=== PATIENT | female | born 1990 | race Two or more races ===

== ENCOUNTER 2017-04-11 22:44 | Emergency (ER) | payer OTHER ==
[~2017-04-11] VITALS: Ht 157.5 cm; Wt 61.2 kg
[2017-04-12 00:19] LABS: BILIRUBIN,URINE NEGATIVE (NEG); GLUCOSE,URINE NEGATIVE (NEG); NITRITE,URINE NEGATIVE (NEG); PROTEIN,URINE NEGATIVE (NEG-TRACE); UROBILINOGEN,URINE 0.2 mg/dL (0.2 mg/dL)
[2017-04-12 00:36] LABS: BACTERIA,URINE FEW /HPF (0-FEW); RBC,URINE OCC /HPF (0-2); SQUAMOUS EPITHELIAL CELL,UR MOD /LPF; WBC,URINE OCC /HPF (0-4)
[2017-04-12 01:29] LABS: BASO # 0.1 x10^3/uL (0.0-0.2); BASO % 1 % (0-3); EOS % 3 % (0-3); HEMATOCRIT 42.7 % (36.0-47.0); HEMOGLOBIN 14.3 g/dL (12.0-15.5); LYMPH # 2.4 x10^3/uL (1.0-4.8); LYMPH % 19 % (24-48); MEAN CORPUSCULAR HEMOGLOBIN 32 pg (25-35); MEAN CORPUSCULAR HGB CONC 34 g/dL (31-37); MEAN CORPUSCULAR VOLUME 96 fL (79-100); MONO % 5 % (0-9); NEUT % 72 % (31-73); PLATELET COUNT 407 x10^3/uL (140-400); RED BLOOD COUNT 4.44 x10^6/uL (3.50-5.40); WHITE BLOOD COUNT 12.7 x10^3/uL (4.0-11.0)
[2017-04-12] MEDS ORDERED: KETOROLAC TROMETHAMINE 30 MG/ML INJ. IV ONE (01:30)
[2017-04-12] MEDS ORDERED: IV NORMAL SALINE 1000ML BAG 1,000 ML IV SCH (01:30)
[2017-04-12] MEDS ORDERED: ONDANSETRON PF 4 MG/2 ML VIAL. IV ONE (01:30)
[2017-04-12 01:56] LABS: CALCIUM 9.5 mg/dL (8.5-10.1); CREATININE 0.7 mg/dL (0.6-1.0); GFR 98.9; POTASSIUM 3.8 mmol/L (3.5-5.1)
[2017-04-12 02:02] LABS: ALBUMIN 4.5 g/dL (3.4-5.0); ALBUMIN/GLOBULIN RATIO 1.1 (1.0-1.7); TOTAL BILIRUBIN 0.2 mg/dL (0.2-1.0); TOTAL PROTEIN 8.6 g/dL (6.4-8.2)
--- NOTE | 2017-04-12 02:24 | RAD ---
EXAM: Abdomen and pelvis CT without intravenous contrast. HISTORY: 27-year-old female with bilateral flank pain, evaluate for stones. TECHNIQUE: Computed tomographic images of the abdomen and pelvis were obtained without contrast. Multiplanar reformatting was performed. PQRS compliance statement: One or more of the following individualized dose reduction techniques were utilized for this examination: 1. Automated exposure control 2. Adjustment of the mA and/or kV according to patient size 3. Use of iterative reconstruction technique COMPARISON: None. FINDINGS: The lung bases demonstrate no acute finding. Detailed evaluation of the intra-abdominal and pelvic organs and vascular structures is limited secondary to lack of IV contrast. Within these limitations, the liver, spleen, gallbladder, pancreas, adrenal glands and bilateral kidneys demonstrate no focal abnormality. No nephrolithiasis or hydronephrosis is present. The GI tract demonstrates no dilated bowel loops to suggest obstruction. Formed fecal material is present throughout the colon, suggesting some degree of constipation. The appendix is visualized in the right lower quadrant, measuring up to 6 mm in diameter without adjacent soft tissue stranding seen.. The urinary bladder is grossly unremarkable. Uterus and bilateral adnexa demonstrate no definite abnormality. A cyst is suggested within the right ovary, not uncommon in premenopausal patients. No intra-abdominal or pelvic free fluid, free air or significant lymphadenopathy is seen. Aorta is normal in caliber. Overlying soft tissues and visualized osseous structures demonstrate no acute or suspicious finding. IMPRESSION: No acute intra-abdominal or pelvic process on this noncontrast study. Specifically, no nephrolithiasis or hydronephrosis seen. Electronically signed by: Bina Ceballos MD (04/12/2017 2:21 AM) [facility]
[2017-04-12 03:00] VITALS: BP 128/66
[2017-04-12] MEDS ORDERED: CEPH-264 PO (03:11)
[2017-04-12] MEDS ORDERED: PHEN-318 PO (03:11)
[2017-04-12] MEDS ORDERED: PHENAZOPYRIDINE 200 MG TABLET. PO ONE (03:15)
[2017-04-12] MEDS ORDERED: CEPHALEXIN 250 MG CAPSULE. PO ONE (03:15)
--- NOTE | 2017-04-12 05:39 | ED.ADGEN ---
Past Medical History Past Medical History: No Pertinent History Past Surgical History: Other Additional Past Surgical Histo: RIGHT ARM CYST Alcohol Use: Occasionally Drug Use: None Adult General Chief Complaint Chief Complaint: FLANK PAIN HPI HPI Patient is a 27 year old man, who presents with a two-week history of flank pain, with pain with urination that occurred yesterday. Patient denies any nausea or vomiting, any weakness, numbness or tingling, any chest pain or shortness breath, states that [place] her primary care provider. She states she is concerned that she has "a kidney infection", based on the symptoms she is experienced previously. She states she has been drinking lots of water and cranberry juice without improvement. Patient states that she does have aching pain located in her back, worse on the right side, no history of kidney stones, no injury, denies any hematuria, any discharge or drainage from the vagina, any concerns for STI exposures. Review of Systems Review of Systems Constitutional: Denies fever or chills. [] Eyes: Denies change in visual acuity. [] HENT: Denies nasal congestion or sore throat. [] Respiratory: Denies cough or shortness of breath. [] Cardiovascular: Denies chest pain or edema. [] GI: Denies abdominal pain, nausea, vomiting, bloody stools or diarrhea. [] : Mild dysuria. Musculoskeletal: Denies back pain or joint pain. [Flank pain, left sided greater than right area] Integument: Denies rash. [] Neurologic: Denies headache, focal weakness or sensory changes. [] Endocrine: Denies polyuria or polydipsia. [] Lymphatic: Denies swollen glands. [] Psychiatric: Denies depression or anxiety. [] Current Medications Current Medications Current Medications Medications (Trade) Dose Ordered Sig/Sahra Start Time Stop Time Status Last Admin Dose Admin Cephalexin HCl (Keflex) 500 mg 1X ONCE 04/12/17 03:15 04/12/17 03:16 DC 04/12/17 03:09 500 MG Ketorolac Tromethamine (Toradol) 10 mg 1X ONCE 04/12/17 01:30 04/12/17 01:31 DC 04/12/17 01:34 10 MG Ondansetron HCl (Zofran) 4 mg 1X ONCE 04/12/17 01:30 04/12/17 01:31 DC 04/12/17 01:34 4 MG Phenazopyridine HCl (Pyridium) 200 mg 1X ONCE 04/12/17 03:15 04/12/17 03:16 DC 04/12/17 03:09 200 MG Sodium Chloride 1,000 ml @ 1,000 mls/hr Q1H 04/12/17 01:30 04/12/17 02:29 DC 04/12/17 01:26 1,000 MLS/HR Allergies Allergies Allergies Coded Allergies Type Severity Reaction Last Updated Verified No Known Drug Allergies 04/12/17 No Physical Exam Physical Exam Constitutional: Well developed, well nourished, no acute distress, non-toxic appearance. [] HENT: Normocephalic, atraumatic, bilateral external ears normal, oropharynx moist, no oral exudates, nose normal. [] Eyes: PERRLA, EOMI, conjunctiva normal, no discharge. [] Neck: Normal range of motion, no tenderness, supple, no stridor. [] Cardiovascular:Heart rate regular rhythm, no murmur, S1, S2, rubs or gallops. [] Lungs & Thorax: Bilateral breath sounds clear to auscultation, no wheezing, rhonchi, rales. No chest or crepitus or tenderness. [] Abdomen: Bowel sounds normal, soft, no tenderness, no rebound, rigidity, no guarding, no masses, no pulsatile masses. [] Skin: Warm, dry, no erythema, no rash. [] Back: No tenderness, mild CVA tenderness, left-sided greater than right. [] Extremities: No tenderness, no cyanosis, no clubbing, ROM intact, no edema. Negative Homans sign. [] Neurologic: Alert and oriented X 3, normal motor function, normal sensory function, no focal deficits noted. [] Psychologic: Affect normal, judgement normal, mood normal. [] Current Patient Data Vital Signs Vital Signs Date Time Temp Pulse Resp B/P (MAP) Pulse Ox O2 Delivery O2 Flow Rate FiO2 04/12/17 03:00 88 19 128/66 (86) 99 Room Air 04/12/17 00:32 98.5 98.5 Lab Values Laboratory Tests Test 04/11/17 23:18 04/12/17 00:05 04/12/17 00:27 POC Urine HCG, Qualitative Hcg negative (Negative) Urine Collection Type Unknown Urine Color Yellow Urine Clarity Clear Urine pH 6.0 Urine Specific [place] 1.015 Urine Protein Negative mg/dL (NEG-TRACE) Urine Glucose (UA) Negative mg/dL (NEG) Urine Ketones (Stick) Negative mg/dL (NEG) Urine Blood Negative (NEG) Urine Nitrite Negative (NEG) Urine Bilirubin Negative (NEG) Urine Urobilinogen Dipstick 0.2 mg/dL (0.2 mg/dL) Urine Leukocyte Esterase Trace (NEG) Urine RBC Occ /HPF (0-2) Urine WBC Occ /HPF (0-4) Urine Squamous Epithelial Cells Mod /LPF Urine Bacteria Few /HPF (0-FEW) Urine Mucus Slight /LPF White Blood Count 12.7 x10^3/uL (4.0-11.0) H Red Blood Count 4.44 x10^6/uL (3.50-5.40) Hemoglobin 14.3 g/dL (12.0-15.5) Hematocrit 42.7 % (36.0-47.0) Mean Corpuscular Volume 96 fL (79-100) Mean Corpuscular Hemoglobin 32 pg (25-35) Mean Corpuscular Hemoglobin Concent 34 g/dL (31-37) Red Cell Distribution Width 13.0 % (11.5-14.5) Platelet Count 407 x10^3/uL (140-400) H Neutrophils (%) (Auto) 72 % (31-73) Lymphocytes (%) (Auto) 19 % (24-48) L Monocytes (%) (Auto) 5 % (0-9) Eosinophils (%) (Auto) 3 % (0-3) Basophils (%) (Auto) 1 % (0-3) Neutrophils # (Auto) 9.2 x10^3uL (1.8-7.7) H Lymphocytes # (Auto) 2.4 x10^3/uL (1.0-4.8) Monocytes # (Auto) 0.6 x10^3/uL (0.0-1.1) Eosinophils # (Auto) 0.4 x10^3/uL (0.0-0.7) Basophils # (Auto) 0.1 x10^3/uL (0.0-0.2) D-Dimer (Eleonora) 1.07 ug/mlFEU (0.00-0.50) H Sodium Level 138 mmol/L (136-145) Potassium Level 3.8 mmol/L (3.5-5.1) Chloride Level 100 mmol/L (98-107) Carbon Dioxide Level 29 mmol/L (21-32) Anion Gap 9 (6-14) Blood Urea Nitrogen 16 mg/dL (7-20) Creatinine 0.7 mg/dL (0.6-1.0) Estimated GFR (Cockcroft-Gault) 98.9 BUN/Creatinine Ratio 23 (6-20) H Glucose Level 64 mg/dL (70-99) L Calcium Level 9.5 mg/dL (8.5-10.1) Total Bilirubin 0.2 mg/dL (0.2-1.0) Aspartate Amino Transferase (AST) 27 U/L (15-37) Alanine Aminotransferase (ALT) 21 U/L (14-59) Alkaline Phosphatase 95 U/L (46-116) Total Protein 8.6 g/dL (6.4-8.2) H Albumin 4.5 g/dL (3.4-5.0) Albumin/Globulin Ratio 1.1 (1.0-1.7) Lipase 205 U/L (73-393) Laboratory Tests 04/12/17 00:27 Laboratory Tests 04/12/17 00:27 EKG EKG Not indicated. [] Radiology/Procedures Radiology/Procedures [][facility] [address] [place] [address] IMAGING REPORT Signed PATIENT: MAKENZIE REAVES ACCOUNT: [id number] : 1990 LOCATION: ER AGE: 27 SEX: F EXAM STATUS: REG ER ORD. PHYSICIAN: SAVANNA TORRES DO REASON: BILATERAL flank pain PROCEDURE: CT ABDOMEN PELVIS WO CONTRAST EXAM: Abdomen and pelvis CT without intravenous contrast. HISTORY: 27-year-old female with bilateral flank pain, evaluate for stones. TECHNIQUE: Computed tomographic images of the abdomen and pelvis were obtained without contrast. Multiplanar reformatting was performed. PQRS compliance statement: One or more of the following individualized dose reduction techniques were utilized for this examination: 1. Automated exposure control 2. Adjustment of the mA and/or kV according to patient size 3. Use of iterative reconstruction technique COMPARISON: None. FINDINGS: The lung bases demonstrate no acute finding. Detailed evaluation of the intra-abdominal and pelvic organs and vascular structures is limited secondary to lack of IV contrast. Within these limitations, the liver, spleen, gallbladder, pancreas, adrenal glands and bilateral kidneys demonstrate no focal abnormality. No nephrolithiasis or hydronephrosis is present. The GI tract demonstrates no dilated bowel loops to suggest obstruction. Formed fecal material is present throughout the colon, suggesting some degree of constipation. The appendix is visualized in the right lower quadrant, measuring up to 6 mm in diameter without adjacent soft tissue stranding seen.. The urinary bladder is grossly unremarkable. Uterus and bilateral adnexa demonstrate no definite abnormality. A cyst is suggested within the right ovary, not uncommon in premenopausal patients. No intra-abdominal or pelvic free fluid, free air or significant lymphadenopathy is seen. Aorta is normal in caliber. Overlying soft tissues and visualized osseous structures demonstrate no acute or suspicious finding. IMPRESSION: No acute intra-abdominal or pelvic process on this noncontrast study. Specifically, no nephrolithiasis or hydronephrosis seen. Electronically signed by: Elodia Belcher MD (04/12/2017 2:21 AM) [facility] DICTATED and SIGNED BY: ELODIA BELCHER MD DATE: 04/12/17214 CC: SAVANNA TORRES DO; NO PCP ~ Course & Med Decision Making Course & Med Decision Making Pertinent Labs and Imaging studies reviewed. (See chart for details) Patient well-appearing, vital signs within normal limits. Urine prancing test is negative. Due to duration of patient's symptoms, and complaints of urinary symptoms, CT of the abdomen and pelvis without contrast obtained after discussion with patient regarding risk versus benefit of imaging. CT did not reveal any concerning findings. Laboratory studies not reveal any evidence of acutely concerning findings, electrolytes and renal function normal. Patient was noted to have some bacteria and white blood cells in the urine.] No nitrates. I discussed these findings with patient, she states she is feeling better after receiving Toradol in the emergency department. Due to patient's complaints, we'll treat with Pyridium and Keflex, patient given contact information for available primary care providers in the area in order to establish a medical care and follow-up for additional evaluation as needed, we also discussed concerning symptoms that prompt return to the ED for emergent evaluation. Patient voiced understanding and agreement, discharged home in stable condition with plan as above. Dragon Disclaimer Dragon Disclaimer This electronic medical record was generated, in whole or in part, using a voice recognition dictation system. Departure Impression: Primary Impression: Flank pain Additional Impression: Urinary tract infection Disposition: HOME, SELF-CARE Condition: IMPROVED Scripts Phenazopyridine Hcl (PYRIDIUM) 200 Mg Tablet 200 MG PO TID Y for bladder spasm, #9 TAB Prov: SAVANNA TORRES DO 04/12/17 Cephalexin (KEFLEX) 500 Mg Capsule 1 CAP PO BID, #6 CAP Prov: SAVANNA TORRES DO 04/12/17 Problem Qualifiers SAVANNA TORRES DO Apr 12, 2017 05:39
== END 2017-04-12 03:23 | disposition home or self-care (01) ==
LOC: ER 22:44
DX: N39.0 Urinary tract infection, site not specified (principal)
CPT/HCPCS: 36415; 74176; 80053; 81001; 81025; 83690; 85025; 85379; 87086; 96361; 96374; 96375; 99285; J1885; J2405; J7030